=== PATIENT | female | born 1980 | race Caucasian/White ===

== ENCOUNTER 2017-05-27 21:45 | Emergency (ER) | payer MEDICAID ==
[~2017-05-27] VITALS: Ht 160 cm; Wt 74.8 kg
[2017-05-27 23:22] LABS: UA SPECIFIC GRAVITY 1.015 (1.005-1.035); microscopic required? YES; urine erythrocyte 2+ (NEGATIVE)
[2017-05-27 23:31] LABS: BASOPHIL % 0.4 % (0-2); PLATELET COUNT 362 x10^3mcL (130-400); RED CELL DISTRIBUTION WIDTH 14.1 % (11.5-14.5)
[2017-05-27 23:40] LABS: CALCIUM 8.3 mg/dL (8.5-10.1); CARBON DIOXIDE 30.2 mmol/L (21-32); CHLORIDE SERUM 101 mmol/L (98-107); CREATININE SERUM 0.8 mg/dL (0.6-1.0); GFR1 > 60 mL/min; GLUCOSE SERUM 127 mg/dL (74-106); POTASSIUM SERUM 3.4 mmol/L (3.5-5.1); SODIUM SERUM 137 mmol/L (136-145)
[2017-05-27 23:50] LABS: ALBUMIN 3.4 g/dL (3.4-5.0); ALKALINE PHOSPHATASE 71 U/L (46-116); ALT/SGPT 25 U/L (14-59); AMYLASE 46 U/L (25-115); AST/SGOT 11 U/L (15-37); BILIRUBIN TOTAL 0.4 mg/dL (0.20-1.00); LIPASE 103 IU/L (73-393); TOTAL PROTEIN, SERUM 7.9 g/dL (6.4-8.2)
[2017-05-28 00:05] LABS: T4(THYROXINE) 9.9 ug/dL (4.7-13.3)
[2017-05-28 02:24] VITALS: BP 118/78
== END 2017-05-28 02:24 | disposition home or self-care (01) ==
LOC: ED 21:45
PROVIDERS: Emergency Medicine
DX: K52.1 Toxic gastroenteritis and colitis (principal); N39.0 Urinary tract infection, site not specified; K56.7 Ileus, unspecified; T62.8X1A Toxic effect of other specified noxious substances eaten as food, accidental (unintentional), initial encounter; Z88.5 Allergy status to narcotic agent; Z90.49 Acquired absence of other specified parts of digestive tract; Y92.89 Other specified places as the place of occurrence of the external cause
CPT/HCPCS: 83880; J1885; J2765

== ENCOUNTER 2019-05-09 17:47 | Emergency (ER) | payer MEDICAID ==
[~2019-05-09] VITALS: Ht 160 cm; Wt 80.3 kg
[2019-05-09 17:57] VITALS: Ht 160 cm; Wt 80.3 kg
[2019-05-10 00:45] VITALS: BP 105/63
== END 2019-05-10 00:45 | disposition home or self-care (01) ==
LOC: ED 17:47
DX: N83.209 Unspecified ovarian cyst, unspecified side (principal)
CPT/HCPCS: 87491; 87591

== ENCOUNTER 2019-08-22 12:03 | Emergency (ER) | payer MEDICAID ==
[~2019-08-22] VITALS: Ht 162.6 cm; Wt 79.4 kg
[2019-08-22 12:30] VITALS: Ht 162.6 cm; Wt 79.4 kg
[2019-08-22 15:20] VITALS: BP 107/63
== END 2019-08-22 15:20 | disposition home or self-care (01) ==
LOC: ED 12:03
DX: R51 Headache (principal); Z88.6 Allergy status to analgesic agent; Z88.5 Allergy status to narcotic agent; Z90.49 Acquired absence of other specified parts of digestive tract